=== PATIENT | female | born 1960 | race Caucasian/White ===

== ENCOUNTER 2023-10-23 18:14 | Emergency (ER) | payer BC, SELFPAY ==
[2023-10-23] VITALS (28 sets, daily range): BP systolic 150–210; BP diastolic 65–112; PULSE 83–103; RESP 11–29; TEMP 36.3–37; O2SAT 92–98
--- NOTE | 2023-10-23 18:15 | RT.EKG_ITS ---
APPROVED REPORT Exam: Resting ECG Reason for Exam: sob Patient Location: E HR:101 bpm ECG Measurements Heart Rate 101 AXIS AK 183 P 48 QRSd 74 QRS 14 QT 360 T 42 QTc 460 Conclusion Sinus rhythm..V-rate 60- [address] segment or T wave abnormalities to suggest occlusive PA
--- NOTE | 2023-10-23 19:00 | DI.RAD_ITS ---
Exam(s) XR CHEST 2V PA LATERAL EXAM: XR CHEST 2V PA LATERAL CLINICAL HISTORY: shortness of breath. TECHNIQUE: 2D digital imaging was performed. COMPARISON: No exams were available for comparison FINDINGS: 2 views: Heart size is normal. The mediastinum is not widened. Lungs are clear. No infiltrates nor pleural effusions. No clips are noted in the left breast. IMPRESSION: No acute pulmonary findings. DATA REPOSITORY: RADIATION DOSE DELIVERED:
--- NOTE | 2023-10-23 19:06 | W.ED.GENAD ---
Discharge Plan Disposition Patient Disposition: Home Condition: Good Discharge Details Clinical Impression: Hypertension Primary Care Provider: Ladi,Local ED Provider: Jania Asher Home Meds and New Rx's Prescriptions: New clonidine HCl 0.2 mg tablet 0.2 mg PO Q6H PRN1 Days Qty: 10 0RF No Action albuterol sulfate 90 mcg/actuation HFA aerosol inhaler 2 puff INHALATION Q4H PRN Patient Comments: INHALE TWO PUFFS BY MOUTH EVERY FOUR HOURS NEEDED amlodipine 10 mg tablet 10 mg PO DAILY Patient Comments: TAKE 1 TABLET BY MOUTH DAILY FOR BLOOD PRESSURE aspirin 81 mg tablet,chewable 1 tab PO DAILY Patient Comments: CHEW 1 TABLET (81 MG TOTAL) BY MOUTH DAILY. clonidine HCl 0.2 mg tablet 0.2 mg PO BID PRN Patient Comments: take 1 tablet by mouth twice a day if needed for BP >160/90 losartan 100 mg tablet 100 mg PO DAILY Patient Comments: TAKE 1 TABLET BY MOUTH EVERY DAY metformin 500 mg tablet 500 mg PO TID Patient Comments: TAKE TWO TABLETS BY MOUTH TWICE DAILY Discharge Instructions Instructions: Hypertension (ED) Additional Instructions: A small refill of your clonidine has been sent to the pharmacy. Please call your primary care doctor to resume prescribing this medication for you. 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 Return to the emergency department for new or worsneing symptoms including shortness of breath, chest pain, pain when you breathe, swelling in one or both of your legs, or if you have any other concerns. Medical Decision Making 62yo F with hx of T2DM, HTN, prior hemorrhagic CVA, presenting from work hypertension. History from patient and MD upstairs. Spoke with sending MD, patient felt unwell at work and checked her BP with SBP in 200's. Patient reports she had just taken her home BP meds (losartan and amlodipine) about one hour prior. Also has clonidine prn which has run out oft. At work had a dull headache which is often associated with high blood pressure for her. No chest pain at any point. She does report some mild orthopnea, no other shortness of breath and no pleuritic pain. Hypertensive on arrival with SBP 200's, slightly tachycardiac to 100's after ambulating into the department. No hypoxia or pleurtic pain to suggest pulmonary embolism and no s/s DVT. HR rechecked at rest and is in 80's; would not further workup PE with labs/imaging. As she recently took her medications will not re-dose here. Physical exam reassuring. EKG sinus rhythm, appropriate intervals, no ST segment or T wave abnormalities to suggest occluisve AK. Labs reviewed as below, CBC & CMP reassuring with no actionable abnormalities. Troponin negative, BNP normal. CXR independently reviewed, no pulmonary edema on my view, agree with radiology read below. No indication of hypertensive emergency; normal Cr, no pulmonary edema, no neurologic deficits. BP trended down without intervention to SBP in 150's. On reassessment she reports feeling well, requesting discharge which is reasonable. Clonidine refilled. Discharged home; discharge instructions including return precautions were reviewed with patient who verbalized understanding. All questions were answered and they are in full agreement with the plan. Imaging Data Radiologic Study: Imaging: X-Ray Radiologist's impression: IMPRESSION: No acute cardiopulmonary pathology. Lab Data Lab results reviewed: Yes I reviewed the patient's lab results. Labs: Laboratory Tests Range/Units 10/23/23 19:25 WBC (4.4-10.8) 10^3/uL 10.97 H RBC (3.93-5.22) 10^6/uL 4.24 Hgb (11.2-15.7) g/dL 12.0 Hct (36.0-46.0) % 36.6 MCV (80-95) fL 86 MCH (27.0-33.0) pg 28.3 MCHC (32.0-36.0) % 32.8 RDW (11.7-14.6) % 13.1 Plt Count (130-400) 10^3/uL 269 MPV (8.0-11.0) fL 9.2 Immature Gran % 0.4 Neutrophils % 72.0 Lymphocytes % 19.1 Monocytes % 6.7 Eosinophils % 1.3 Basophils % 0.5 Nucleated RBC % (0.0-0.3) % 0.0 Absolute Neutrophils (1.2-6.7) 10^3/uL 7.90 H Absolute Lymphocytes (1.2-3.4) 10^3/uL 2.10 Absolute Monocytes (0.1-0.8) 10^3/uL 0.73 Absolute Eosinophils (0.0-0.7) 10^3/uL 0.14 Absolute Basophils (0.0-0.2) 10^3/uL 0.05 Sodium (136-145) mmol/L 137 Potassium (3.5-5.1) mmol/L 3.8 Chloride (98-107) mmol/L 100 Carbon Dioxide (21.0-32.0) mmol/L 25.6 Anion Gap (3-11) mmol/L 11.4 H BUN (7-18) mg/dL 11 Creatinine (0.55-1.02) mg/dL 0.7 Est GFR (CKD-EPI 2020) (mL/min/1.73m2) 97.72 Glucose (74-106) mg/dL 212 H Calcium (8.5-10.1) mg/dL 9.0 Total Bilirubin (0.2-1.0) mg/dL 0.3 AST (15-37) U/L 68 H ALT (14-59) U/L 109 H Alkaline Phosphatase (46-116) U/L 84 Troponin I (<or=60) ng/L < 50 NT-Pro-B Natriuret Pep (<300) pg/mL 78 Total Protein (6.4-8.2) g/dL 7.7 Albumin (3.4-5.0) g/dL 3.7 HPI General Mode of arrival: ambulatory. Date/Time Provider Initiated Documentation: 10/23/23 19:02. Limitations to Documentation: no limitations. Information obtained by: patient and RN/MD. HPI Narrative: 62yo F with hx of T2DM, HTN, prior hemmoraghic CVA, presenting for hypertension. She takes amlodipine and losartan for BP with clonidine prn. Has run out of her clonidiine. [place] unwell at work today, mild headache, checked her BP and SBP was 200's which is unusual for her. She had just taken her amlodipine and losartan less than an hour prior. No chest pain at any point. She has noted some new LE edema over the past week as well as mild shortness of breath, worse while laying flat. No shortness of breath at rest or with exertion. She is otherwise in her usual state of health with no fevers, chills, rash, nausea, vomiting, abdominal pain, blurry vision, numbness, tingling, weakness, or other concerns. Related Data Home Medications Medication Instructions Recorded Confirmed albuterol sulfate 90 mcg/actuation 2 puff inhalation Q4H PRN 10/23/23 10/23/23 aerosol inhaler amlodipine 10 mg tablet 10 mg PO DAILY 10/23/23 10/23/23 aspirin 81 mg chewable tablet 1 tab PO DAILY 10/23/23 10/23/23 clonidine HCl 0.2 mg tablet 0.2 mg PO BID PRN 10/23/23 10/23/23 clonidine HCl 0.2 mg tablet 0.2 mg PO Q6H PRN 24 hours #10 tabs 10/23/23 losartan 100 mg tablet 100 mg PO DAILY 10/23/23 10/23/23 metformin 500 mg tablet 500 mg PO TID 10/23/23 10/23/23 Previous Rx's Medication Instructions Recorded clonidine HCl 0.2 mg tablet 0.2 mg PO Q6H PRN 24 hours #10 tabs 10/23/23 Allergies Allergy/AdvReac Type Severity Reaction Status Date / Time tetanus immune globulin Allergy Severe Anaphylaxis Unverified 10/23/23 18:33 citalopram [From Celexa] Allergy Intermediate Skin Rash Unverified 10/23/23 18:33 Penicillins Allergy Intermediate Skin Rash Unverified 10/23/23 18:33 Sulfa (Sulfonamide Allergy Intermediate Skin Rash Unverified 10/23/23 18:33 Antibiotics) General Stated Complaint: SOB LINDA: 2 Review of Systems Narrative: see HPI PFSH All Active Problems (Updated 10/23/23 @ 20:44 by Jania Asher MD) Hypertension (Chronic) Social History Smoking/Tobacco Use Status: Never Smoking risk assessment performed?: Yes Alcohol Intake: never Drug use: Never Substance use type: does not use Housing: house Do you feel safe at home: Yes Do you feel safe in your relationship?: Yes Exam Narrative Exam Narrative: General: Alert, well appearing, well nourished, in no acute distress. Head: Normocephalic, atraumatic Neck: Trachea midline, Neck supple. ENT: MMM. Cardiac: RRR, no murmurs appreciated Resp: No respiratory distress. CTAB. Abd: Soft, non-distended, nontender : No suprapubic tenderness. Extremities: No deformities. 1+ symmetric peripheral edema. Neurologic: GCS 15. PERRL. EOMI. Fluent speech, no dysarthria. Moves all extremities freely against gravity. Sensation intact and symmetric to light touch multiple dermatomes including upper and lower extrmeities. Course Vital Signs Vital signs: Vital Signs Temperature 36.3 C L 10/23/23 18:20 Pulse 103 H 10/23/23 18:20 Respiratory Rate 18 10/23/23 18:20 Blood Pressure 210/112 H 10/23/23 18:20 Pulse Oximetry 98 10/23/23 18:20 Temperature 36.3 C L 10/23/23 18:20 Temperature Source Skin 10/23/23 18:20 Pulse 103 H 10/23/23 18:20 Respiratory Rate 20 10/23/23 18:26 Respiratory Effort Short of Breath 10/23/23 18:26 Respiratory Depth Normal 10/23/23 18:26 Respiratory Pattern Normal 10/23/23 18:26 Blood Pressure 210/112 H 10/23/23 18:20 Blood Pressure Position Sitting 10/23/23 18:20 Pulse Oximetry 98 10/23/23 18:20 Oxygen Delivery Method Room Air 10/23/23 18:20 Oxygen Flow Rate 0 10/23/23 18:20 Pain Level 0 10/23/23 18:20 Comment took BP medication today - took extra 10/23/23 18:20
[2023-10-23 19:35] LABS: Abs Immature Grans 0.04 10^3/uL (0.0-0.06); Absolute Eosinophil Count 0.14 10^3/uL (0.0-0.7); Absolute Monocyte Count 0.73 10^3/uL (0.1-0.8); Basophils % 0.5; Eosinophils % 1.3; HCT 36.6 % (36.0-46.0); Immature Grans % 0.4; Lymphocytes % 19.1; MCH 28.3 pg (27.0-33.0); MCHC 32.8 % (32.0-36.0); MCV 86 fL (80-95); MPV 9.2 fL (8.0-11.0); Monocytes % 6.7; Platelet Count 269 10^3/uL (130-400); RBC 4.24 10^6/uL (3.93-5.22); RDW 13.1 % (11.7-14.6); RDW-SD 40.9 fL; WBC 10.97 10^3/uL (4.4-10.8)
[2023-10-23 19:36] LABS: Absolute Basophil Count 0.05 10^3/uL (0.0-0.2)
[2023-10-23 20:00] LABS: ALT 109 U/L (14-59); AST 68 U/L (15-37); Albumin 3.7 g/dL (3.4-5.0); Alkaline Phosphatase 84 U/L (46-116); Anion Gap 11.4 mmol/L (3-11); BUN 11 mg/dL (7-18); Bilirubin, Total 0.3 mg/dL (0.2-1.0); CO2 25.6 mmol/L (21.0-32.0); CREATININE 0.7 mg/dL (0.55-1.02); Chloride 100 mmol/L (98-107); Estimated GFR 97.72 (mL/min/1.73m2); Glucose 212 mg/dL (74-106); NT-proBNP 78 pg/mL (<300); Potassium 3.8 mmol/L (3.5-5.1); Sodium 137 mmol/L (136-145); Total Protein 7.7 g/dL (6.4-8.2); Troponin I < 50 ng/L (<or=60)
--- NOTE | 2023-10-23 20:09 | DI.VRAD_ITS ---
PROCEDURE INFORMATION: Exam: XR Chest Exam date and time: 10/23/2023 19:49 Age: 62 years old Clinical indication: Shortness of breath TECHNIQUE: Imaging protocol: Radiologic exam of the chest. Views: 2 views. COMPARISON: No relevant prior studies available. FINDINGS: Lungs: Interstitial and vascular crowding appearing technique related. No airspace consolidation. Pleural spaces: No pleural effusion. No pneumothorax. Heart/Mediastinum: No significant cardiomegaly for position and projection. Bones/joints: No acute fracture. Soft tissues: Left chest wall surgical clips. IMPRESSION: No acute cardiopulmonary pathology. Dictated and Authenticated by: Karlee Sutton MD. Ordering:SVETLANA Dykes MD
[2023-10-23] MEDS: cloNIDine 0.1 MG TAB 0.6 MG PO (20:53)
== END 2023-10-23 20:56 | disposition home or self-care (01) ==
PROVIDERS: Emergency Provider Student in an Organized Health Care Education/Training Program
DX: R51.9 Headache, unspecified (principal); R06.02 Shortness of breath; I10 Essential (primary) hypertension; E11.9 Type 2 diabetes mellitus without complications; Z86.73 Personal history of transient ischemic attack (TIA), and cerebral infarction without residual deficits
CPT/HCPCS: 80053; 93005; 99285; 71046; 83880; 84484; 85025; 93010; 99284